=== PATIENT | female | born 1955 | race Caucasian/White ===

== ENCOUNTER 2019-02-12 20:00 | Emergency (ER) | payer MEDICAID ==
[~2019-02-12] VITALS: Ht 157.5 cm; Wt 59.0 kg
[2019-02-13] VITALS: BP 148/76
== END 2019-02-12 21:20 | disposition home or self-care (01) ==
LOC: ER 20:05 → EDBD 20:05 → ER 21:20
DX: S93.692A Other sprain of left foot, initial encounter (principal); W01.0XXA Fall on same level from slipping, tripping and stumbling without subsequent striking against object, initial encounter; Y93.89 Activity, other specified; Y92.89 Other specified places as the place of occurrence of the external cause; Y99.8 Other external cause status
CPT/HCPCS: 73630-TC